=== PATIENT | female | born 1955 | race Caucasian/White ===

== ENCOUNTER 2017-01-26 13:21 | Emergency (ER) | payer OTHER ==
[~2017-01-26] VITALS: Wt 90.3 kg
[2017-01-26] MEDS ORDERED: ONDANSETRON 4 MG INJ IV STA (15:01)
[2017-01-26] MEDS ORDERED: LIDOCAINE/MYLANTA 40 ML BTL PO STA (15:01)
[2017-01-26] MEDS ORDERED: SOD CHLORIDE 0.9% 1,000 ML IV STA (15:01)
[2017-01-26] MEDS ORDERED: KETOROLAC 15 MG INJ IV STA (15:01)
[2017-01-26] MEDS ORDERED: BELLADONNA/PHENOBARBITAL TAB PO STA (15:01)
--- NOTE | 2017-01-26 15:26 | RADRPT ---
PROCEDURE: Chest x-ray CLINICAL INDICATION: Abdominal pain TECHNIQUE: Chest single view COMPARISON: 12/01/2013 FINDINGS: The heart is normal in size. The pulmonary vessels are normal in caliber. The lungs are clear. Th e costophrenic angles are sharp. The visualized bony thorax is unremarkable. IMPRESSION: No acute cardiopulmonary disease. No interval change RPTAT: HH .Kali Hassan MD, Date Time Electronically viewed and signed by .Kali Hassan MD, on 01/26/2017 15:26 .W/
[2017-01-26 15:43] LABS: ADD SCAN DIFF NO
[2017-01-26 15:44] LABS: ABNORMAL IP MESSAGE 1; HEMATOCRIT 37.8 % (37.0-47.0); MEAN CORPUSCULAR HEMOGLOBIN 30.3 pg (29.0-33.0); MEAN CORPUSCULAR HGB CONC 34.4 g/dl (32.0-37.0); MEAN CORPUSCULAR VOLUME 88.1 fl (82.0-101.0); MEAN PLATELET VOLUME 10.1 fl (7.4-10.4); PLATELET COUNT 101 10^3/UL (140-415); RED BLOOD COUNT 4.29 10^6/ul (4.20-5.40); RED CELL DISTRIBUTION WIDTH 13.5 % (11.5-14.5)
[2017-01-26 15:55] LABS: CHLORIDE 97 mmol/L (97-110)
[2017-01-26 15:56] LABS: ALBUMIN 3.5 g/dl (3.3-4.9); POTASSIUM 3.7 mmol/L (3.5-5.1); SODIUM 138 mmol/L (135-144)
[2017-01-26 15:58] LABS: CREATININE 1.46 mg/dl (0.44-1.00)
[2017-01-26 15:59] LABS: ALANINE AMINOTRANSFERASE 151 IU/L (13-69); ALBUMIN/GLOBULIN RATIO 1.06; ALKALINE PHOSPHATASE 196 IU/L (42-121); ANION GAP 19 (8-16); ASPARTATE AMINO TRANSFERASE 115 IU/L (15-46); BILIRUBIN,INDIRECT 0.2 mg/dl (0-1.1); BLOOD UREA NITROGEN 19 mg/dl (7-20); CARBON DIOXIDE 26 mmol/L (21-31); GLUCOSE 106 mg/dl (70-220); TOTAL PROTEIN 6.8 g/dl (6.1-8.1)
[2017-01-26 16:00] LABS: CALCIUM 8.7 mg/dl (8.4-10.2)
[2017-01-26] MEDS ORDERED: MEDR2.5T21 PO (16:09)
[2017-01-26] MEDS ORDERED: ESTR0.753 PO (16:09)
[2017-01-26] MEDS ORDERED: LOSA1TAB21 PO (16:11)
[2017-01-26] MEDS ORDERED: FLUO20CA38 PO (16:11)
[2017-01-26 16:14] LABS: TROPONIN-I < 0.010 ng/ml (0.00-0.12)
[2017-01-26] MEDS ORDERED: CARI350T PO (16:37)
[2017-01-26] MEDS ORDERED: IBUP-1542 PO (16:37)
[2017-01-26 16:56] LABS: LYMPHOCYTES # 0.6 10^3/ul (0.8-2.9); MONOCYTE # 0.1 10^3/ul (0.3-0.9); NEUTROPHIL # 8.8 10^3/ul (1.6-7.5)
[2017-01-26] MEDS ORDERED: SOD CHLORIDE 0.9% 1,000 ML IV ONE (17:00)
[2017-01-26 18:28] VITALS: BP 104/77; PULSE 82; RESP 16; TEMP 97.3
--- NOTE | 2017-01-26 18:35 | ERD ---
ER Documentation Chief Complaint Date/Time DATE: 01/26/17 TIME: 18:30 Chief Complaint COUGH FOR A FEW WKS. FEVERS AND GEN WEAKNESS.UPPER BACK PAIN, HPI 61-year-old woman presents with low back pain 2 days. She had a recent cough which has been improving although she states with cough and movement she precipitates her back pain. She states recently she has been lifting heavy boxes which also exacerbates her pain. She denies fevers or chills, no chest pain, no abdominal pain, no dysuria, no headache or blurry vision, no vomiting or diarrhea. ROS All systems reviewed and are negative except as per history of present illness. Medications Home Meds Active Scripts Carisoprodol* (Soma*) 350 Mg Tablet, 350 MG PO TID Y for MUSCLE SPASMS, #15 TAB Prov:DOMINIC GIRON MD 01/26/17 Ibuprofen* (Ibuprofen*) 600 Mg Tablet, 600 MG PO Q8 for PAIN AND/OR INFLAMMATION , #30 TAB Prov:DOMINIC GIRON MD 01/26/17 Reported Medications Losartan-Hydrochlorothiazide (Losartan-HCTZ) 100-12.5 Mg Tab, 1 TAB PO DAILY, TAB 01/26/17 Fluoxetine Hcl* (Prozac*) 20 Mg Capsule, 20 MG PO DAILY, CAP 01/26/17 Medroxyprogesterone Acetate* (Medroxyprogesterone Acetate*) 2.5 Mg Tablet, 2.5 MG PO DAILY, TAB 01/26/17 Estropipate (Estropipate) 0.75 Mg Tablet, 0.75 MG PO DAILY, TAB 01/26/17 Allergies Allergies: Coded Allergies: No Known Allergy (Unverified , 01/26/17) PMhx/Soc Hypertension History of Surgery: No Anesthesia Reaction: No Hx Neurological Disorder: No Hx Respiratory Disorders: No Hx Cardiac Disorders: Yes (HTN ) Hx Psychiatric Problems: No Hx Miscellaneous Medical Probl: No Hx Alcohol Use: No Hx Substance Use: No Hx Tobacco Use: Yes Smoking Status: Current every day smoker FmHx Family History: No diabetes Physical Exam Vitals Vital Signs Date Time Temp Pulse Resp B/P Pulse Ox O2 Delivery O2 Flow Rate FiO2 01/26/17 18:28 97.3 82 16 104/77 97 Room Air 01/26/17 17:01 84 16 97/69 99 Room Air 01/26/17 13:30 97.3 100 21 104/65 98 Physical Exam GENERAL: Well-developed, well-nourished, well-hydrated, mild discomfort. Afebrile. HEENT: Dry mucous membranes, pink conjunctiva, no cervical spine tenderness or step-off deformities, no goiter, no jaundice or icterus, extraocular movements intact without pain. No submandibular induration, and no pharyngeal erythema NEURO: Alert and oriented 3, cranial nerves II through XII intact bilaterally, pupils equal round reactive to light, no focal deficits or facial asymmetry, sensation intact distally Strength 5/5 in upper and lower extremities bilaterally CARDIAC: Regular rate and rhythm, no murmurs rubs or gallops LUNGS: Clear bilaterally no wheezing crackles or stridor ABDOMEN: Soft nontender, no guarding, no rigidity, no rebound, no psoas sign no obturator sign. Normoactive bowel sounds SKIN: Warm and dry to touch, no abrasions, contusions, or hematomas, no lacerations, no ecchymosis, no target lesions, and without ulcers EXTREMITIES: No clubbing cyanosis or edema, calves are bilaterally symmetrical, no Homans sign, no popliteal cord sign. Distal pulses equal and bilateral PSYCH: Normal affect without agitation or irritability Result Diagram: 01/26/17 1515 01/26/17 1515 Results 24 hrs Laboratory Tests Test 01/26/17 15:15 Alanine Aminotransferase (ALT/SGPT) 151IU/L Albumin 3.5g/dl Albumin/Globulin Ratio 1.06 Alkaline Phosphatase 196IU/L Anion Gap 19 Aspartate Amino Transf (AST/SGOT) 115IU/L Band Neutrophils % 21.0% Basophils # 10^3/ul Basophils % % Blood Urea Nitrogen 19mg/dl Calcium Level 8.7mg/dl Carbon Dioxide Level 26mmol/L Chloride Level 97mmol/L Creatinine 1.46mg/dl Direct Bilirubin 0.80mg/dl Eosinophils # 10^3/ul Eosinophils % % Globulin 3.30g/dl Glucose Level 106mg/dl Hematocrit 37.8% Hemoglobin 13.0g/dl Indirect Bilirubin 0.2mg/dl Lipase < 10U/L Lymphocytes # 0.610^3/ul Lymphocytes % 5.0% Mean Corpuscular Hemoglobin 30.3pg Mean Corpuscular Hemoglobin Concent 34.4g/dl Mean Corpuscular Volume 88.1fl Mean Platelet Volume 10.1fl Monocytes # 0.110^3/ul Monocytes % 1.0% Neutrophils # 8.810^3/ul Neutrophils % 73.0% Nucleated Red Blood Cells # 10^3/ul Nucleated Red Blood Cells % /100WBC Platelet Count 27330^3/UL Potassium Level 3.7mmol/L Red Blood Count 4.2910^6/ul Red Cell Distribution Width 13.5% Sodium Level 138mmol/L Total Bilirubin 1.0mg/dl Total Protein 6.8g/dl Troponin I < 0.010ng/ml White Blood Count 12.010^3/ul Current Medications Medications (Trade) Dose Ordered Sig/Quang Route PRN Reason Start Time Stop Time Status Last Admin Dose Admin Sodium Chloride (NS) 1,000 ml @ 1,000 mls/hr Q1H STAT IV 01/26/17 15:01 01/26/17 16:00 DC 01/26/17 15:37 Ondansetron HCl (Zofran Inj) 4 mg ONCE STAT IV 01/26/17 15:01 01/26/17 15:03 DC 01/26/17 15:37 Miscellaneous Medication (Gi Cocktail (2)) 40 ml ONCE STAT PO 01/26/17 15:01 01/26/17 15:03 DC 01/26/17 15:37 Belladonna/ Phenobarbital () 2 tab ONCE STAT PO 01/26/17 15:01 01/26/17 15:03 DC 01/26/17 16:21 Ketorolac Tromethamine 15 mg 15 mg ONCE STAT IV 01/26/17 15:01 01/26/17 15:03 DC 01/26/17 15:37 Sodium Chloride (NS) 1,000 ml @ 1,000 mls/hr Q1H ONCE IV 01/26/17 17:00 01/26/17 17:59 DC 01/26/17 17:03 Procedures/MDM Patient appeared dehydrated IV line was established was placed on cardiac monitor technician rhythm strip revealed a sinus rhythm at about 80 bpm with upright P and T waves. Patient was afebrile. I administered 2 L normal saline intravenously for dehydration, Toradol 50 mg IV , GI cocktail 50 cc p.o., and Zofran 4 mg IV with good response. Chest X-ray 1V Interpreted by me: Soft Tissue: No acute abnormalities Bones: No acute abnormalities Mediastinum/Cardiac Silhouette/Lungs: No acute abnormalities CBC and electrolytes were unremarkable, liver function tests revealed mild transaminitis, troponin was negative. Patient's pain improved and she gives strong history for musculoskeletal lumbar sprain versus possible lumbar disc herniation without significant or concerning neurological symptoms or findings. Her other symptoms including cough and fevers have resolved over the last few days and it was in her main concern today in the ED. Her vital signs including blood pressure are normal at this time and she feels much better. I did recommend outpatient MR imaging of the lumbar back to rule out significant radiculopathy, although given her current presentation this can be performed as an outpatient. Differential diagnoses considered, included but not limited to acute coronary syndrome, pulmonary embolism, aortic dissection, abdominal aortic aneurysm, sepsis, stroke, meningitis, encephalitis, pneumonia, appendicitis, cholecystitis , bowel obstruction, pyelonephritis, nephrolithiasis, cystitis, as well as metabolic, hematologic, and electrolyte abnormalities. As well as abscess, cellulitis, fractures, and dislocations. Patient feels much better at this time, and vital signs are normal, symptoms have improved. I did give strict instructions to return to the ED if symptoms continue or worsen, patient will otherwise follow-up with primary care physician. Patient understood instructions and agreed to plan. Departure Diagnosis: Primary Impression: Dehydration Additional Impressions: Transaminitis Lumbar back sprain Encounter type: initial encounter Qualified Code: S33.5XXA - Lumbar back sprain, initial encounter Condition: Good Patient Instructions: Back Sprain/Strain DOMINIC GIRON MD Jan 26, 2017 18:35
== END 2017-01-26 18:32 | disposition home or self-care (01) ==
LOC: E/R 13:21
DX: E86.0 Dehydration (principal); R74.0 Nonspecific elevation of levels of transaminase and lactic acid dehydrogenase [LDH]; S33.5XXA Sprain of ligaments of lumbar spine, initial encounter; I10 Essential (primary) hypertension; F17.210 Nicotine dependence, cigarettes, uncomplicated; X50.1XXA Overexertion from prolonged static or awkward postures, initial encounter; Y92.9 Unspecified place or not applicable
CPT/HCPCS: 36415; 71010; 80053; 83690; 84484; 85025; 96374; 96375; J1885; J2405; J7030; Z7502; Z7610